=== PATIENT | female | born 1995 | race Caucasian/White ===

== ENCOUNTER 2017-05-15 05:05 | Emergency (ER) | payer SELFPAY ==
[~2017-05-15] VITALS: Ht 157.5 cm; Wt 102.1 kg
[2017-05-15 05:09] VITALS: Ht 157.5 cm; Wt 102.1 kg
--- NOTE | 2017-05-15 05:49 | ERD ---
ER Documentation Chief Complaint Chief Complaint fever/headache/body aches x 2 days HPI cough, fever, body aches x 2 days . pt works at [employer] around many people ROS All systems reviewed and are negative except as per history of present illness. Allergies Allergies: Coded Allergies: No Known Drug Allergies (Verified Allergy, Unknown, 05/15/17) PMhx/Soc Medical and Surgical Hx: pt denies Medical Hx, pt denies Surgical Hx History of Surgery: No Anesthesia Reaction: No Hx Neurological Disorder: No Hx Respiratory Disorders: No Hx Cardiac Disorders: No Hx Psychiatric Problems: No Hx Miscellaneous Medical Probl: No Hx Alcohol Use: No Hx Substance Use: No Hx Tobacco Use: No Smoking Status: Never smoker Physical Exam Vitals Vital Signs Date Time Temp Pulse Resp B/P Pulse Ox O2 Delivery O2 Flow Rate FiO2 05/15/17 05:09 100.0 130 20 140/94 99 Physical Exam Const: Well-nourished well-appearing well-hydrated obese 21-year-old female obvious discomfort, no acute distress Eyes: Conjunctiva injected ENT: .Nasal mucosa wet, tympanic membranes are erythemic, oral mucosa is moist, tongue is midline, tonsils are +2, uvula midline without shift, rises and falls with pronation Neck: Full range of motion..~ No meningismus. Resp: poor air ascultation, wheezing Cardio: Tachycardic rate and rhythm, no murmurs Abd: Soft, non tender, non distended. No epigastric tenderness, no McBurney' s point tenderness Skin: Is hot to touch ,no petechiae or rashes Back: No midline or flank tenderness Neur: Awake and alert mild confusion noted with temperature 102.9 Psych: Normal Mood and Affect Results 24 hrs Current Medications Medications (Trade) Dose Ordered Sig/Nadine Route PRN Reason Start Time Stop Time Status Last Admin Dose Admin Acetaminophen (Tylenol Tab) 650 mg ONCE ONCE PO 05/15/17 06:00 05/15/17 06:01 DC 05/15/17 06:06 Ibuprofen 600 mg 600 mg ONCE ONCE PO 05/15/17 06:00 05/15/17 06:01 DC 05/15/17 06:06 Sodium Chloride (NS) 1,000 ml @ 1,000 mls/hr Q1H ONCE IV 05/15/17 06:00 05/15/17 06:59 DC 05/15/17 06:10 Procedures/MDM This 21-year-old female presents to emergency department with a 2 day history of cough, fever, body aches, runny nose, patient has used [id number] Tylenol for symptomatic relief with little relief of symptoms. Emergency room course includes history and physical exam, patient's temperature is 102.9, wheezing, and confusion noted, emergency room course includes history and physical exam, influenza A swab, 1 L of normal saline, albuterol Atrovent hand- held nebulized treatment, post exam patient fever has diminished, she is still ill appearing does not feel well, plan to treat patient with Tamiflu 75 mg 1 tab p.o. twice daily 5 days, patient was told that this was not a cure for influenza but an antiviral medication that may shorten the duration of current symptoms. Patient is highly contagious, instructed to treat fever with Tylenol and Motrin, note was to be off work 7 days. Increase fluids, increase rest, return to emergency department for fever not improving with medication, or symptoms not improving as expected in 10 days. Patient is stable with no new complaints during ER course, clinically there is no current evidence to suggest meningitis, sepsis, acute abdomen, acute coronary syndromes, pulmonary embolism or any other emergent condition appearing to require further evaluation or hospitalization. I feel the patient is stable for discharge at this time. I have discussed results, examination findings, the treatment plan with the patient and family present prior to discharge. Indications for emergent reevaluation, side effects of medication were also discussed. All questions were answered. Patient verbalizes understanding and agrees with plan of care. Departure Diagnosis: Primary Impression: Influenza A Condition: Good Patient Instructions: Influenza (Adult) Additional Instructions: Thank you for for coming to [facility] for your care today. Please ask your nurse or provider if you have questions about your care today and do not leave until all your questions have been answered. Please use any medications given as directed and follow-up with your doctor (or the doctor you were referred to) in the next 2-3 days. If you do not have a primary care doctor you may follow up at the [facility] (listed below). You may also use motrin and tylenol as needed for fever and/or pain unless instructed otherwise by your provider or nurse. Indications for more urgent follow-up have been discussed, but you may return to the Emergency Department at ANY time for any worrisome or worsening symptoms. If you have abdominal pain, please know that no test or exam you received is perfect and you should follow up within 8 hours for continued pain. If you had any imaging studies today, such as an X-Ray or CT Scan, these studies will be reviewed later by a radiologist. You will be called if there are important findings that were not identified today, so make sure the contact information you provided at registration is correct. If you received any narcotic pain control medicine today, such as Vicodin, Morphine or Dilaudid, your coordination and judgment may be affected for a number of hours. Please do not drive or operate heavy machinery, and you may want someone to assist you at home. If you were given a prescription for narcotic medication, be aware that it is very addictive- use sparingly and only if necessary. NAYA LAWSON May 15, 2017 05:49
[2017-05-15] MEDS ORDERED: ACETAMINOPHEN 325 MG TAB PO ONE (06:00)
[2017-05-15] MEDS ORDERED: IBUPROFEN 600 MG TAB PO ONE (06:00)
[2017-05-15] MEDS ORDERED: SOD CHLORIDE 0.9% 1,000 ML IV ONE (06:00)
[2017-05-15] MEDS ORDERED: ALBU18HF INHALATION (07:11)
[2017-05-15] MEDS ORDERED: OSLT75C PO (07:11)
[2017-05-15] MEDS ORDERED: ACET500C5 PO (07:12)
[2017-05-15] MEDS ORDERED: IBUP-1542 PO (07:12)
== END 2017-05-15 07:25 | disposition home or self-care (01) ==
LOC: FTE 05:05
DX: J10.1 Influenza due to other identified influenza virus with other respiratory manifestations (principal)
CPT/HCPCS: 87400; 99284; J7030

== ENCOUNTER 2017-08-16 20:59 | Emergency (ER) | END 2017-08-16 23:58 | disposition home or self-care (01) ==

== ENCOUNTER 2018-01-19 17:08 | Emergency (ER) | END 2018-01-19 19:11 | disposition home or self-care (01) ==

== ENCOUNTER 2018-02-24 21:47 | Emergency (ER) | END 2018-02-25 04:30 | disposition home or self-care (01) ==

== ENCOUNTER 2018-04-13 20:11 | Emergency (ER) | END 2018-04-13 22:54 | disposition left against medical advice (07) ==